=== PATIENT | female | born 1975 | race African-American/Black ===

== ENCOUNTER 2021-01-16 00:02 | Inpatient (IN) | payer MEDICAID ==
[~2021-01-16] VITALS: Ht 165.1 cm; Wt 159.3 kg
[2021-01-16] MEDS ORDERED: SODIUM CHLORIDE 0.9% 1000ML BAG (SEPSIS BOLUS) IV ONE (00:30)
[2021-01-16] MEDS ORDERED: AZITHROMYCIN 500 MG in DEXT 5% WATER 250 ML IV ONE (00:30)
[2021-01-16] MEDS ORDERED: DEXAMETHASONE 4MG/ML 1ML VIAL IV ONE (00:30)
[2021-01-16] MEDS ORDERED: CEFTRIAXONE 1 G PREMIX 50 ML IV ONE (00:30)
[2021-01-16] MEDS ORDERED: SODIUM CHLORIDE 0.9% 500 ML IV NR (00:45)
[2021-01-16 00:56] LABS: BASOPHILS % 0.5 % (0.0-2.0); HEMATOCRIT. 40.2 % (36.0-48.0); HEMOGLOBIN. 13.6 g/dL (12.0-16.0); LYMPHOCYTES % 34.1 % (20.0-50.0); MEAN CORPUSCULAR HEMOGLOBIN 29.9 pg (28.0-32.0); MEAN CORPUSCULAR VOLUME 88.4 fL (81.0-99.0); MEAN PLATELET VOLUME 8.6 fl (7.4-10.4); MONOCYTES % 8.7 % (2.0-8.0); NEUTROPHILS % 55.7 % (40.0-76.0); PLATELET 204 x1000/uL (130-400); RED BLOOD CELL COUNT 4.54 mill/uL (4.2-5.4); RED CELL DISTRIBUTION WIDTH 13.5 % (11.6-14.6)
[2021-01-16 01:03] LABS: CHLORIDE 108 mEq/L (98-107)
[2021-01-16 01:06] LABS: HCG SCREEN NEGATIVE
[2021-01-16 01:08] LABS: ETHANOL BLOOD < 10 mg/dL
[2021-01-16 01:29] LABS: D-DIMER 5.01 mg/L FEU (<0.50); INR 1.1; PROTHROMBIN TIME 11.6 sec (9.6-11.0)
[2021-01-16] MEDS ORDERED: HEPARIN 5000 UNITS/ML VIAL IV PRN ×2 (02:00→09:00)
[2021-01-16] MEDS ORDERED: HEPARIN 5000 UNITS/ML VIAL IV NR (02:35)
[2021-01-16] MEDS ORDERED: IOHEXOL-350 100 ML BOTTLE ONE (05:36)
[2021-01-16] MEDS ORDERED: POTASSIUM CHLORIDE 20MEQ TABLET SR PO SCH (10:00)
[2021-01-16] MEDS ORDERED: ONDANSETRON HCL 4MG/2ML INJ IV PRN (10:00)
[2021-01-16] MEDS ORDERED: ACETAMINOPHEN 325MG TABLET PO PRN (10:00)
[2021-01-16] MEDS: FUROSEMIDE 40MG/4ML VIAL IVP SCH ×2 (10:28→17:40)
[2021-01-16] MEDS: AMLODIPINE 10MG TABLET PO SCH (10:28)
[2021-01-16 12:40] LABS: CLARITY URINE CLEAR (CLEAR); COLOR URINE YELLOW (YELLOW); KETONES URINE 1+ (NEGATIVE); LEUKOCYTE ESTERASE URINE NEGATIVE (NEGATIVE); NITRITE URINE NEGATIVE (NEGATIVE); OCCULT BLOOD URINE 1+ (NEGATIVE); PH URINE 6.5 (4.5-8.0); PROTEIN URINE NEGATIVE (NEGATIVE); SPECIFIC GRAVITY URINE 1.019 (1.005-1.030)
[2021-01-16 12:54] LABS: *AMPHETAMINES SCREEN URINE NEGATIVE (NEGATIVE); CANNABINOID URINE SCREEN NEGATIVE (NEGATIVE); OPIATES URINE SCREEN NEGATIVE (NEGATIVE); PHENCYCLIDINE URINE SCREEN NEGATIVE (NEGATIVE)
[2021-01-16 12:55] LABS: *BARBITURATES SCREEN URINE NEGATIVE (NEGATIVE); *BENZODIAZEPINES SCREEN URINE NEGATIVE (NEGATIVE); *COCAINE SCREEN URINE NEGATIVE (NEGATIVE); METHADONE URINE SCREEN NEGATIVE (NEGATIVE)
[2021-01-16 16:37] LABS: BG BASE EXCESS 1.2 mmol/L (-2.0-2.0); BG CARBOXYHEMOGLOBIN 0.1 % (0.5-1.5); BG DEOXYHEMOGLOBIN 4.6 % (0.0-5.0); BG HCO3 ACT 23.8 mmol/L (22.0-26.0); BG METHEMOGLOBIN 0.1 % (0.0-1.5); BG OXYGEN SATURATION 95.4 % (92.0-98.5); BG OXYHEMOGLOBIN 95.2 % (94.0-97.0); BG PCO2 32.2 mmHg (35.0-45.0); BG PH 7.486 (7.350-7.450); BG PO2 74.4 mmHg (75.0-100.0); BG SAMPLE SITE RIGHT RADIAL; BG TOTAL HEMOGLOBIN 14.9 g/dL (12.0-18.0); BG VENT MODE NASAL CANNULA
[2021-01-16] MEDS: HEPARIN 5000 UNITS/ML VIAL IV PRN (21:58)
[2021-01-16 23:15] VITALS: BP 128/90
[2021-01-17] MEDS: HEPARIN 25,000 UNITS PREMIX 250 ML IV PRN ×3 (00:09→21:46)
[2021-01-17] MEDS ORDERED: NALOXONE HCL 0.4MG/ML VIAL IV PRN (00:15)
[2021-01-17] MEDS: HYDROCODONE/ACETAMINOPHEN 5/325MG TABLET PO PRN ×2 (00:43→21:48)
[2021-01-17 06:24] LABS: BASOPHILS % 0.1 % (0.0-2.0); EOSINOPHILS % 0.4 % (0.0-5.0); HEMOGLOBIN. 13.1 g/dL (12.0-16.0); LYMPHOCYTES % 20.8 % (20.0-50.0); MEAN CORPUSCULAR HEMOGLOBIN 29.2 pg (28.0-32.0); MEAN CORPUSCULAR VOLUME 89.4 fL (81.0-99.0); MEAN PLATELET VOLUME 9.1 fl (7.4-10.4); MONOCYTES % 8.8 % (2.0-8.0); NEUTROPHILS % 69.9 % (40.0-76.0); PLATELET 205 x1000/uL (130-400); RED BLOOD CELL COUNT 4.48 mill/uL (4.2-5.4); RED CELL DISTRIBUTION WIDTH 13.7 % (11.6-14.6)
[2021-01-17 07:22] LABS: CHLORIDE 109 mEq/L (98-107)
[2021-01-17 08:16] VITALS: BP 113/74
[2021-01-17] MEDS: FUROSEMIDE 40MG/4ML VIAL IVP SCH (09:03)
[2021-01-17] MEDS: AMLODIPINE 10MG TABLET PO SCH (09:04)
[2021-01-17 12:24] VITALS: BP 105/71
[2021-01-17 16:30] VITALS: BP 104/72
[2021-01-17] MEDS: HEPARIN 5000 UNITS/ML VIAL IV PRN (20:25)
[2021-01-18] VITALS (9 sets, daily range): BP systolic 97–140; BP diastolic 61–77
[2021-01-18] MEDS: AMLODIPINE 10MG TABLET PO SCH (09:00)
[2021-01-18] MEDS ORDERED: HEPARIN SODIUM 1,000 UNIT/1ML VIAL IV ONE (10:04)
[2021-01-18] MEDS ORDERED: MIDAZOLAM HCL 2 MG/2 ML VIAL ONE (11:48)
[2021-01-18] MEDS ORDERED: FENTANYL CITRATE/PF 50MCG/ML 2ML VIAL ONE (11:48)
[2021-01-18] MEDS ORDERED: LIDOCAINE HCL 1% 20ML VIAL (Pyxis) INJ ONE (11:49)
[2021-01-18] MEDS ORDERED: IODIXANOL 320MG/ML 100 ML BOTTLE IV ONE ×2 (11:49→13:20)
[2021-01-18] MEDS ORDERED: HEPARIN 1000 UNITS/ML 10ML ONE (12:04)
[2021-01-18] MEDS ORDERED: ONDANSETRON HCL 4MG/2ML INJ ONE (12:50)
[2021-01-18] MEDS ORDERED: FENTANYL CITRATE/PF 50MCG/ML 5ML VIAL ONE (14:39)
[2021-01-18] MEDS ORDERED: MIDAZOLAM HCL 5 MG/5 ML VIAL ONE (14:39)
[2021-01-18] MEDS ORDERED: SODIUM CHLORIDE 0.45% 500 ML IV SCH (14:45)
[2021-01-18] MEDS ORDERED: ATROPINE SULFATE 1MG/10ML SYR IV PRN (14:45)
[2021-01-18] MEDS: ENOXAPARIN 150MG/ML SYR SUBCUT SCH (15:38)
[2021-01-18] MEDS: HYDROCODONE/ACETAMINOPHEN 5/325MG TABLET PO PRN (18:43)
[2021-01-19] VITALS (16 sets, daily range): BP systolic 101–145; BP diastolic 60–107
[2021-01-19] MEDS: ENOXAPARIN 150MG/ML SYR SUBCUT SCH ×2 (05:03→18:22)
[2021-01-19 07:53] LABS: BASOPHILS % 0.1 % (0.0-2.0); EOSINOPHILS % 1.5 % (0.0-5.0); HEMATOCRIT. 33.9 % (36.0-48.0); HEMOGLOBIN. 10.9 g/dL (12.0-16.0); LYMPHOCYTES % 50.7 % (20.0-50.0); MEAN CORPUSCULAR HEMOGLOBIN 29.1 pg (28.0-32.0); MEAN CORPUSCULAR VOLUME 90.4 fL (81.0-99.0); MEAN PLATELET VOLUME 8.7 fl (7.4-10.4); NEUTROPHILS % 38.7 % (40.0-76.0); PLATELET 191 x1000/uL (130-400); RED BLOOD CELL COUNT 3.75 mill/uL (4.2-5.4); RED CELL DISTRIBUTION WIDTH 14.2 % (11.6-14.6)
[2021-01-19 07:59] LABS: CHLORIDE 108 mEq/L (98-107)
[2021-01-19] MEDS: AMLODIPINE 10MG TABLET PO SCH (08:03)
[2021-01-19] MEDS: HYDROCODONE/ACETAMINOPHEN 5/325MG TABLET PO PRN ×2 (08:10→22:18)
[2021-01-20] VITALS (13 sets, daily range): BP systolic 88–157; BP diastolic 64–93
[2021-01-20] MEDS: ENOXAPARIN 150MG/ML SYR SUBCUT SCH ×2 (06:24→18:27)
[2021-01-20] MEDS: AMLODIPINE 10MG TABLET PO SCH (09:21)
[2021-01-20] MEDS ORDERED: APIX5TAB MT (09:28)
[2021-01-20] MEDS ORDERED: APIX5TAB PO (09:28)
[2021-01-20] MEDS ORDERED: FURO-152 MT (10:02)
[2021-01-20] MEDS ORDERED: AMLO10TA80 MT (10:02)
[2021-01-20] MEDS: CARVEDILOL 3.125 MG TABLET PO SCH ×2 (10:45→21:04)
[2021-01-20] MEDS ORDERED: FUROSEMIDE 20MG/2ML VIAL IVP NR (16:15)
[2021-01-20] MEDS: HYDROCODONE/ACETAMINOPHEN 5/325MG TABLET PO PRN (22:26)
[2021-01-21] VITALS (17 sets, daily range): BP systolic 89–132; BP diastolic 48–93
[2021-01-21] MEDS: ENOXAPARIN 150MG/ML SYR SUBCUT SCH ×2 (06:06→18:16)
[2021-01-21] MEDS: CARVEDILOL 3.125 MG TABLET PO SCH ×2 (08:38→22:02)
[2021-01-21] MEDS: AMLODIPINE 10MG TABLET PO SCH (08:39)
[2021-01-21] MEDS ORDERED: HYDR-4001 MT (08:45)
[2021-01-21] MEDS: HYDROCODONE/ACETAMINOPHEN 5/325MG TABLET PO PRN (17:08)
[2021-01-22] VITALS (12 sets, daily range): BP systolic 103–131; BP diastolic 68–85
[2021-01-22] MEDS: ENOXAPARIN 150MG/ML SYR SUBCUT SCH ×2 (06:07→18:06)
[2021-01-22] MEDS: AMLODIPINE 10MG TABLET PO SCH (10:53)
[2021-01-22] MEDS: CARVEDILOL 3.125 MG TABLET PO SCH ×2 (10:53→21:45)
[2021-01-23] VITALS (10 sets, daily range): BP systolic 104–114; BP diastolic 55–78
[2021-01-23] MEDS: ENOXAPARIN 150MG/ML SYR SUBCUT SCH (06:05)
[2021-01-23] MEDS ORDERED: CARVEDILOL 3.125 MG TABLET PO SCH (09:00)
[2021-01-23] MEDS: AMLODIPINE 10MG TABLET PO SCH (09:57)
== END 2021-01-23 17:05 | disposition home or self-care (01) | DRG 134 ==
LOC: ER 00:02 → MICUSO 04:49 → EDBEDREQSVC 04:50 → EDBEDREQ 04:50 → EDBEDREQTM 04:50 → 6WST 22:30 → 3WST 01-18 15:02
PROVIDERS: ADMIT Internal Medicine; ATTEND Internal Medicine
PROC: 4A023N6 Measurement of Cardiac Sampling and Pressure, Right Heart, Percutaneous Approach (ICD-10-PCS; principal; 2021-01-18)
PROC: 02CQ3ZZ Extirpation of Matter from Right Pulmonary Artery, Percutaneous Approach (ICD-10-PCS; 2021-01-18)
PROC: 02CP3ZZ Extirpation of Matter from Pulmonary Trunk, Percutaneous Approach (ICD-10-PCS; 2021-01-18)
PROC: B519YZZ Fluoroscopy of Inferior Vena Cava using Other Contrast (ICD-10-PCS; 2021-01-18)
PROC: B54BZZA Ultrasonography of Right Lower Extremity Veins, Guidance (ICD-10-PCS; 2021-01-18)
DX: I26.92 Saddle embolus of pulmonary artery without acute cor pulmonale (principal); J96.01 Acute respiratory failure with hypoxia; I21.4 Non-ST elevation (NSTEMI) myocardial infarction; I27.29 Other secondary pulmonary hypertension; I50.33 Acute on chronic diastolic (congestive) heart failure; E44.1 Mild protein-calorie malnutrition; Z68.43 Body mass index [BMI] 50.0-59.9, adult; I27.81 Cor pulmonale (chronic); E66.01 Morbid (severe) obesity due to excess calories; E87.8 Other disorders of electrolyte and fluid balance, not elsewhere classified; Z20.822 Contact with and (suspected) exposure to COVID-19; E87.6 Hypokalemia; M17.0 Bilateral primary osteoarthritis of knee; I11.0 Hypertensive heart disease with heart failure; D64.9 Anemia, unspecified; R53.81 Other malaise; Z79.01 Long term (current) use of anticoagulants; I25.2 Old myocardial infarction
CPT/HCPCS: 36415; 36600; 37184; 37185; 71045; 71275; 75743; 80048; 80053; 80305; 80320; 81003; 82375; 82805; 83605; 83880; 84145; 84443; 84484; 84703; 85025; 85347; 85379; 85384; 86140; 87426; 93005; 93306; 93451; 93970; 94618; 97110; 97116; 97162; 97530; 99291; C1758; C1760; C1766; C1769; C1887; C1894; J0456; J0696; J1100; J1644; J1650; J1940; J2250; J2405; J3010; J3490; J7030; J7040; J7060; Q9967; C1757; G0480

== ENCOUNTER 2021-11-01 14:47 | Emergency (ER) | payer MEDICAID ==
[~2021-11-01] VITALS: Ht 172.7 cm; Wt 136.0 kg
[~2021-11-01 14:47] MED LIST: AMLO10TA80 MT; APIX5TAB MT; APIX5TAB PO; FURO-152 MT; HYDR-4001 MT
[2021-11-01 15:27] LABS: BASOPHILS % 0.4 % (0.0-2.0); EOSINOPHILS % 0.5 % (0.0-5.0); HEMATOCRIT. 34.8 % (36.0-48.0); HEMOGLOBIN. 11.1 g/dL (12.0-16.0); LYMPHOCYTES % 30.3 % (20.0-50.0); MEAN CORPUSCULAR HEMOGLOBIN 26.5 pg (28.0-32.0); MEAN CORPUSCULAR VOLUME 83.3 fL (81.0-99.0); MEAN PLATELET VOLUME 8.2 fl (7.4-10.4); MONOCYTES % 10.3 % (2.0-8.0); NEUTROPHILS % 58.5 % (40.0-76.0); PLATELET 299 x1000/uL (130-400); RED BLOOD CELL COUNT 4.18 mill/uL (4.2-5.4); RED CELL DISTRIBUTION WIDTH 15.9 % (11.6-14.6)
[2021-11-01 15:36] LABS: CHLORIDE 107 mEq/L (98-107)
[2021-11-01] MEDS ORDERED: HYDR28OI2 TP (20:47)
[2021-11-01] MEDS ORDERED: FURO-152 MT (20:47)
[2021-11-01] MEDS ORDERED: HYDR-4001 MT (20:47)
[2021-11-01 21:41] VITALS: BP 142/80
== END 2021-11-01 21:43 | disposition home or self-care (01) ==
LOC: ER 14:47
DX: R07.89 Other chest pain (principal); M71.21 Synovial cyst of popliteal space [Baker], right knee; Z68.42 Body mass index [BMI] 45.0-49.9, adult
CPT/HCPCS: 36415; 71045; 80053; 83880; 84484; 85025; 93970; 99285